=== PATIENT | male | born 1980 | race Caucasian/White ===

== ENCOUNTER 2017-03-08 23:24 | Emergency (ER) | payer BC, OTHER ==
[2017-03-09] MEDS ORDERED: Pantoprazole IV* 40 MG IV ONE (00:43)
[2017-03-09] MEDS ORDERED: Ondansetron INJ* 2 MG/ML VIAL IV ONE (00:44)
[2017-03-09 01:26] LABS: Hematocrit 40 % (42-52); Hemoglobin 14.2 g/dl (14.0-18.0); Mean Corpuscular HGB Conc 35 g/dl (31-36); Mean Corpuscular Hemoglobin 31 pg (27-31); Mean Corpuscular Volume 89 fL (80-94); Mean Platelet Volume 6 um3 (7.4-10.4); Red Blood Count 4.55 10^6/ul (4.0-5.4); Red Cell Distribution Width 12 % (10.5-15); White Blood Count 7.9 10^3/ul (3.5-10.8)
[2017-03-09 01:42] LABS: Albumin 4.5 g/dL (3.2-5.2); BUN/Creatinine Ratio 12.4 (8-20); Calcium 9.6 mg/dL (8.6-10.3); EGFR African American 101.7 (>60); Globulin 2.6 g/dL (2-4); Magnesium 2.2 mg/dL (1.9-2.7); Potassium 3.8 mmol/L (3.5-5.0); Total Bilirubin 0.6 mg/dL (0.2-1.0); Total Protein 7.1 g/dL (6.4-8.9)
[2017-03-09 01:55] LABS: Urine Bilirubin Negative (Negative); Urine Glucose Negative (Negative); Urine Nitrite Negative (Negative)
[2017-03-09 01:55] LABS: TSH (Thyroid Stimulating Horm) 0.21 mcIU/mL (0.34-5.60)
--- NOTE | 2017-03-09 02:18 | ED ---
Ar Howell Rebecca, scribed for Yulia Ewing MD on 03/09/17 at 0023 . Palpitations / Dysrhythmia - HPI Summary HPI Summary: Pt is a 36 y/o M accompanied by his who presents to ED c/o palpitations characterized as fast. Pt reports that at approximately 2250 tonight, he woke up after being asleep for about 30 minutes with sudden onset palpitations. Pt reports that he is unsure of what his heart rate was [employer]. Sx had improved upon arrival to the ED. Additionally c/o SOB, nausea and chest tightness. Denies CP, AYALA, abdominal pain, LE pain. Pt states that he is unsure if his sx were related to a panic attack. Takes Advil daily. Prior similar episodes during which he was experiencing "heart burn" though he has no PMHx GERD. Reports that he ate dinner late last night, at 2130, and that he had fish sticks which usually cause heart burn so he proactively took 2 Tums prior to the meal. - History of Current Complaint Chief Complaint: EDGeneral Time Seen by Provider: 03/09/17 00:13 Hx Obtained From: Patient, Family/Benefits Specialist Recruiter - present Onset/Duration: Sudden Onset, Lasting Hours, Still Present Timing: Constant Severity Initially: Moderate Severity Currently: None Character: Fast Aggravating: Nothing Alleviating: Nothing Associated Signs & Symptoms: Shortness of Breath, Nausea Related History: Similar Episode/Dx as - Prior instances of "heart burn" - Risk Factors Cardiac: Negative Pulmonary Embolism: Negative - Allergy/Home Medications Allergies/Adverse Reactions: Allergies Allergy/AdvReac Type Severity Reaction Status Date / Time Morphine AdvReac Shortness Verified 03/08/17 23:34 of Breath Nitrous Oxide AdvReac Nausea And Verified 03/08/17 23:34 Vomiting PMH/Surg Hx/FS Hx/Imm Hx Previously Healthy: No - heartburn Endocrine/Hematology History: Denies: Hx Diabetes, Hx Thyroid Disease Cardiovascular History: Denies: Hx Hypertension Respiratory History: Denies: Hx Asthma, Hx Chronic Obstructive Pulmonary Disease (COPD) GI History: Denies: Hx Ulcer - Surgical History Surgery Procedure, Year, and Place: elbow and knee surgeries Infectious Disease History: No Infectious Disease History: Denies: Hx Hepatitis, Hx Human Immunodeficiency Virus (HIV), History Other Infectious Disease, Traveled Outside the [place] in Last 30 Days - Family History Known Family History: Positive: Cardiac Disease, Diabetes, Other - Prostate CA - Social History Occupation: Employed Part-time - self employed heating contractor, much stress at work Lives: With Family Alcohol Use: None Alcohol Amount: none in 18 months Substance Use Type: Reports: None Smoking Status (MU): Never Smoked Tobacco Review of Systems Constitutional: Negative Positive: Palpitations, Other - Chest tightness. Negative: Chest Pain Positive: Shortness Of Breath Positive: Nausea. Negative: Abdominal Pain Positive: Other - NEGATIVE: LE pain Negative: Headache Psychological: Normal All Other Systems Reviewed And Are Negative: Yes Physical Exam Triage Information Reviewed: Yes Vital Signs On Initial Exam: Initial Vitals Temp Pulse Resp BP Pulse Ox 98.2 F 93 16 143/93 100 03/08/17 23:25 03/08/17 23:25 03/08/17 23:25 03/08/17 23:25 03/08/17 23:25 Vital Signs Reviewed: Yes Appearance: Positive: No Pain Distress, Well-Nourished, Ill-Appearing - Mildly Skin: Positive: Warm, Skin Color Reflects Adequate Perfusion Head/Face: Positive: Normal Head/Face Inspection Eyes: Positive: Conjunctiva Clear ENT: Positive: Normal ENT inspection Neck: Positive: Supple, Nontender, No Lymphadenopathy Respiratory/Lung Sounds: Positive: Clear to Auscultation, Breath Sounds Present , Other - No respiratory distress Cardiovascular: Positive: RRR, Pulses are Symmetrical in both Upper and Lower Extremities, S1, S2. Negative: Murmur Abdomen Description: Positive: Nontender, No Organomegaly, Soft. Negative: Distended, Guarding, Peritoneal Signs, Pulsatile Mass, Splenomegaly Bowel Sounds: Positive: Present Musculoskeletal: Positive: Strength/ROM Intact Neurological: Positive: Sensory/Motor Intact, Alert, Oriented to Person Place, Time, Facial Symmetry, Speech Normal Psychiatric: Positive: Normal Diagnostics - Vital Signs Vital Signs Temp Pulse Resp BP Pulse Ox 03/08/17 23:25 98.2 F 93 16 143/93 100 - Laboratory Lab Results: Lab Results 03/09/17 03/09/17 03/09/17 Range/Units 00:55 00:55 00:55 WBC (3.5-10.8) 10^3/ul RBC (4.0-5.4) 10^6/ul Hgb (14.0-18.0) g/dl Hct (42-52) % MCV (80-94) fL MCH (27-31) pg MCHC (31-36) g/dl RDW (10.5-15) % Plt Count (150-450) 10^3/ul MPV (7.4-10.4) um3 Neut % (Auto) (38-83) % Lymph % (Auto) (25-47) % Door % (Auto) (1-9) % Eos % (Auto) (0-6) % Baso % (Auto) (0-2) % Absolute Neuts (auto) (1.5-7.7) 10^3/ul Absolute Lymphs (auto) (1.0-4.8) 10^3/ul Absolute Monos (auto) (0-0.8) 10^3/ul Absolute Eos (auto) (0-0.6) 10^3/ul Absolute Basos (auto) (0-0.2) 10^3/ul Absolute Nucleated RBC 10^3/ul Nucleated RBC % INR (Anticoag Therapy) 0.89 (0.89-1.11) D-Dimer, Quantitative < 200 (Less Than 230) ng/mL Sodium 136 (133-145) mmol/L Potassium 3.8 (3.5-5.0) mmol/L Chloride 99 L (101-111) mmol/L Carbon Dioxide 32 (22-32) mmol/L Anion Gap 5 (2-11) mmol/L BUN 13 (6-24) mg/dL Creatinine 1.05 (0.67-1.17) mg/dL Est GFR ( Amer) 101.7 (>60) Est GFR (Non-Af Amer) 79.0 (>60) BUN/Creatinine Ratio 12.4 (8-20) Glucose 114 H (70-100) mg/dL Lactic Acid (0.5-2.0) mmol/L Calcium 9.6 (8.6-10.3) mg/dL Magnesium 2.2 (1.9-2.7) mg/dL Total Bilirubin 0.60 (0.2-1.0) mg/dL AST 29 (13-39) U/L ALT 50 (7-52) U/L Alkaline Phosphatase 43 (34-104) U/L Total Creatine Kinase 201 (10-223) U/L CK-MB (CK-2) 3.9 (0.6-6.3) ng/mL Troponin I 0.00 (<0.04) ng/mL B-Natriuretic Peptide 14 ( - 100) pg/mL Total Protein 7.1 (6.4-8.9) g/dL Albumin 4.5 (3.2-5.2) g/dL Globulin 2.6 (2-4) g/dL Albumin/Globulin Ratio 1.7 (1-3) TSH 0.21 L (0.34-5.60) mcIU/mL Urine Color Urine Appearance Urine pH (5-9) Ur Specific [place] (1.010-1.030) Urine Protein (Negative) Urine Ketones (Negative) Urine Blood (Negative) Urine Nitrate (Negative) Urine Bilirubin (Negative) Urine Urobilinogen (Negative) Ur Leukocyte Esterase (Negative) Urine Glucose (Negative) 03/09/17 03/09/17 03/09/17 Range/Units 00:55 00:55 01:42 WBC 7.9 (3.5-10.8) 10^3/ul RBC 4.55 (4.0-5.4) 10^6/ul Hgb 14.2 (14.0-18.0) g/dl Hct 40 L (42-52) % MCV 89 (80-94) fL MCH 31 (27-31) pg MCHC 35 (31-36) g/dl RDW 12 (10.5-15) % Plt Count 247 (150-450) 10^3/ul MPV 6 L (7.4-10.4) um3 Neut % (Auto) 70.9 (38-83) % Lymph % (Auto) 20.4 L (25-47) % Door % (Auto) 6.2 (1-9) % Eos % (Auto) 1.8 (0-6) % Baso % (Auto) 0.7 (0-2) % Absolute Neuts (auto) 5.6 (1.5-7.7) 10^3/ul Absolute Lymphs (auto) 1.6 (1.0-4.8) 10^3/ul Absolute Monos (auto) 0.5 (0-0.8) 10^3/ul Absolute Eos (auto) 0.1 (0-0.6) 10^3/ul Absolute Basos (auto) 0.1 (0-0.2) 10^3/ul Absolute Nucleated RBC 0 10^3/ul Nucleated RBC % 0.1 INR (Anticoag Therapy) (0.89-1.11) D-Dimer, Quantitative (Less Than 230) ng/mL Sodium (133-145) mmol/L Potassium (3.5-5.0) mmol/L Chloride (101-111) mmol/L Carbon Dioxide (22-32) mmol/L Anion Gap (2-11) mmol/L BUN (6-24) mg/dL Creatinine (0.67-1.17) mg/dL Est GFR ( Amer) (>60) Est GFR (Non-Af Amer) (>60) BUN/Creatinine Ratio (8-20) Glucose (70-100) mg/dL Lactic Acid 1.0 (0.5-2.0) mmol/L Calcium (8.6-10.3) mg/dL Magnesium (1.9-2.7) mg/dL Total Bilirubin (0.2-1.0) mg/dL AST (13-39) U/L ALT (7-52) U/L Alkaline Phosphatase (34-104) U/L Total Creatine Kinase (10-223) U/L CK-MB (CK-2) (0.6-6.3) ng/mL Troponin I (<0.04) ng/mL B-Natriuretic Peptide ( - 100) pg/mL Total Protein (6.4-8.9) g/dL Albumin (3.2-5.2) g/dL Globulin (2-4) g/dL Albumin/Globulin Ratio (1-3) TSH (0.34-5.60) mcIU/mL Urine Color Yellow Urine Appearance Clear Urine pH 7.0 (5-9) Ur Specific [place] 1.012 (1.010-1.030) Urine Protein Negative (Negative) Urine Ketones Negative (Negative) Urine Blood Negative (Negative) Urine Nitrate Negative (Negative) Urine Bilirubin Negative (Negative) Urine Urobilinogen Negative (Negative) Ur Leukocyte Esterase Negative (Negative) Urine Glucose Negative (Negative) Result Diagrams: 03/09/17 00:55 03/09/17 00:55 Lab Statement: Any lab studies that have been ordered have been reviewed, and results considered in the medical decision making process. - Radiology CXR Xray Interpretation: No Acute Changes Radiology Interpretation Completed By: ED Physician - EKG 2337 Cardiac Rate: NL - 88 bpm EKG Rhythm: Sinus Rhythm EKG Interpretation: Nl AV/IV CT, nl QRS, nl axis Re-Evaluation - Re-Evaluation First Eval Re-Evaluation Time: 02:15 Change: Improved - no palpitations, no heartburn or chest tightness Course/Dx - Course Course Of Treatment: given protonix 40mg IV with relief. TSH slightly decreased noted. rest of labs, EKG and CXR unremarkable Assessment/Plan: Allergies noted. Medications reviewed. Elevated BP noted. - Diagnoses Differential Diagnosis/HQI/PQRI: Positive: Coronary Artery Disease, Hyperventilation, Mitral Valve Prolapse, Panic Disorder, Other - hyperthyroidism Provider Diagnoses: Palpitations, GERD (gastroesophageal reflux disease), Decreased thyroid stimulating hormone (TSH) level Discharge - Discharge Plan Condition: Stable Disposition: HOME Prescriptions: Pantoprazole TAB (NF) [Protonix TAB (NF)] 20 mg PO DAILY #30 tab Patient Education Materials: Palpitations (ED), Gastroesophageal Reflux Disease (ED) Referrals: [facility] [place] [facility]ERR[facility] [Outside] Additional Instructions: Follow up with your doctor at [facility] on , regarding possible elevated thyroid levels (hyperthyroidism). Elevated thyroid levels can make your heart race, but it is not an emergency that needs to be treated tonight. Your doctor can do more evaluation and see if any treatment is needed. The rest of your labs and chest xray were within normal limits. Your EKG was sinus rhythm and no acute changes. We gave you one dose of protonix 40mg IV that gave you some relief of heartburn. We sent a prescription for this to [facility] in [place] that you may fill if you would like. Return to the ER if you have any new or worsening symptoms. The documentation as recorded by the Ar benitez Rebecca accurately reflects the service I personally performed and the decisions made by me, Yulia Ewing MD.
[2017-03-09 02:22] VITALS: BP 133/83
--- NOTE | 2017-03-09 08:09 | RAD ---
INDICATION: Palpitations COMPARISON: None TECHNIQUE: PA and lateral dual-energy views were obtained. FINDINGS: Bones/Soft Tissues: There are no acute bony findings. Cardiomediastinal: The cardiomediastinal silhouette is normal. Lungs: There are no infiltrates. Pleura: There are no pleural effusions. Other: None IMPRESSION: NORMAL CHEST.
== END 2017-03-09 02:20 | disposition home or self-care (01) ==
LOC: ED 23:24
DX: R00.2 Palpitations (principal); R06.02 Shortness of breath; K21.9 Gastro-esophageal reflux disease without esophagitis
CPT/HCPCS: 36415; 71020; 80053; 81003; 82550; 82553; 83605; 83735; 83880; 84443; 84484; 85025; 85379; 85610; 93005; 99282

== ENCOUNTER 2018-12-01 11:51 | Emergency (ER) | payer BC ==
[2018-12-01 12:09] VITALS: BP 148/84
--- NOTE | 2018-12-01 12:50 | UC ---
Skin Complaint HPI - HPI Summary HPI Summary: He's had an erythematous and tender area and left chest for several days. It seems to be advancing slowly. - History of Current Complaint Chief Complaint: UCSkin Time Seen by Provider: 12/01/18 12:31 Stated Complaint: SKIN COMPLAINT Hx Obtained From: Patient Onset/Duration: Gradual Onset Skin Exposure Onset/Duration: Days Ago Timing: Constant Onset Severity: Mild Current Severity: Mild Pain Intensity: 1 Location: Other - Left chest. Aggravating Factor(s): Nothing Alleviating Factor(s): Nothing Associated Signs & Symptoms: Positive: Negative - Allergy/Home Medications Allergies/Adverse Reactions: Allergies Allergy/AdvReac Type Severity Reaction Status Date / Time morphine Allergy Altered Verified 12/01/18 12:10 Mental Status nitrous oxide Allergy Nausea And Verified 12/01/18 12:10 Vomiting Home Medications: Home Medications NK [No Home Medications Reported] 12/01/18 [History Confirmed 12/01/18] PMH/Surg Hx/FS Hx/Imm Hx Previously Healthy: Yes - previous episode of cellulitis - Surgical History Surgical History: None Surgery Procedure, Year, and Place: elbow and knee surgeries - Family History Known Family History: Positive: Cardiac Disease, Diabetes, Other - Prostate CA - Social History Alcohol Use: None Alcohol Amount: none in 18 months Substance Use Type: None Smoking Status (MU): Never Smoked Tobacco Review of Systems All Other Systems Reviewed And Are Negative: Yes Constitutional: Positive: Negative Skin: Positive: Rash Physical Exam - Summary Physical Exam Summary: Is nontoxic in appearance with stable vital signs. Triage Information Reviewed: Yes Appearance: Well-Appearing, No Pain Distress Vital Signs: Initial Vital Signs Temp 98.8 F 12/01/18 12:06 Pulse 79 12/01/18 12:06 Resp 20 12/01/18 12:06 BP 148/84 12/01/18 12:06 Pulse Ox 100 12/01/18 12:06 Vital Signs Reviewed: Yes Neck: Positive: Supple Respiratory Exam: Normal - There is an erythematous and mildly tender in the left upper chest. Musculoskeletal Exam: Normal Neurological Exam: Normal Course/Dx - Course Course Of Treatment: This may be a skin infection. I'm going to treat with Keflex to be on the safe side. - Diagnoses Provider Diagnosis: Cellulitis Discharge - Sign-Out/Discharge Documenting (check all that apply): Patient Departure All imaging exams completed and their final reports reviewed: No Studies - Discharge Plan Condition: Stable Disposition: HOME Patient Education Materials: Cellulitis (ED) Referrals: No Primary Care Phys,NOPCP [Primary Care Provider] - - Billing Disposition and Condition Condition: STABLE Disposition: Home
== END 2018-12-01 13:00 | disposition home or self-care (01) ==
LOC: UCEAST 11:51
DX: L03.313 Cellulitis of chest wall (principal); Z88.5 Allergy status to narcotic agent
CPT/HCPCS: 99212; G0463